=== PATIENT | female | born 1930 | race Caucasian/White ===

== ENCOUNTER → 2017-05-14 | Outpatient (CLI) | payer MEDICARE, BC, OTHER ==
[~2017-05-14] MED LIST: ALBU3IS INH; ALBU90OI INH; ALEN70 PO; ASPI325 PO; ASPI81CH PO; ATOR20 PO; AZITHROMYCIN PO; B-121000 MCG PO; BUDE6HFA INH; Bactrim Ds Tab1 EACH PO; CALCAVITD PO; CEPH500 PO; CHOL10002; DOCU100 PO; DONE10 PO; FLUSAL2505 INH; FURO20 PO; GUAI600T33 PO; HYDR1TAB94 PO; LAVAP17G PO; LISI5 PO; Lopressor 50 mg50 MG PO; METO50 PO; METO50ER PO; NICO21TP; OCUSOFT LID SCR50 M1 TP; Omeprazole20 M1; PIME1CR; PIME1CR TOP; PREDNISONE PO; PREG25 PO; SENEXON-S TABL1 EACH PO; SENN187 PO; SERT25 PO; SERT50 PO; TIOT18 INH; TRIA80TC TOP; [UNRECOGNIZED DRUG - REMARK]
[2017-05-14 10:46] LABS: Source, Urine Clean Catch
[2017-05-14 11:08] LABS: Appearance, Urine Hazy (Clear); Color, Urine Yellow (P-Yellow); Leukocyte Esterase, Urine 1+ (Neg); pH, Urine 6.5 (5.0-8.0)
[2017-05-14 11:09] LABS: Bacteria Rare /hpf; Bilirubin, Urine Neg (Neg); Blood, Urine Neg (Neg); Glucose Qualitative, Urine Neg (Normal); Ketones, Urine Neg (Neg); Nitrite, Urine Neg (Neg); Protein, Urine Neg (Neg); Red Blood Cells, Urine Not Seen /hpf (0-2); Squamous Epithelial Cells Mod /hpf (Few); Urobilinogen, Urine NORM (Normal)
== END ==
LOC: LAB SHORT 09:30
PROVIDERS: Nurse Practitioner Family
DX: N39.0 Urinary tract infection, site not specified (principal); L10.9 Pemphigus, unspecified; R19.7 Diarrhea, unspecified
CPT/HCPCS: 81001; 82043; 87086; 87493

== ENCOUNTER → 2019-03-07 | Outpatient (CLI) | payer MEDICARE, BC, OTHER ==
[2019-03-07 14:18] LABS: Bilirubin, Urine Neg (Neg); Blood, Urine 3+ (Neg); Glucose Qualitative, Urine 1+ (Neg); Ketones, Urine Neg (Neg); Leukocyte Esterase, Urine 3+ (Neg); Nitrite, Urine Neg (Neg); Protein, Urine 2+ (Neg); Urobilinogen, Urine NORM (Normal)
[2019-03-07 14:34] LABS: Appearance, Urine Hazy (Clear); Color, Urine Yellow (P-Yellow)
[2019-03-07 14:37] LABS: Bacteria Many /hpf; Squamous Epithelial Cells Few /hpf (Few); White Blood Cells, Urine TNTC /hpf (0-5)
== END | disposition home or self-care (01) ==
LOC: LAB SHORT 12:25 → LAB 12:25
PROVIDERS: Family Medicine
DX: N39.0 Urinary tract infection, site not specified (principal)
CPT/HCPCS: 81001; 87077; 87086; 87186

== ENCOUNTER 2020-04-21 17:57 | Emergency (ER) | payer MEDICARE, BC, OTHER ==
[~2020-04-21] VITALS: Ht 160 cm; Wt 79.4 kg
== END 2020-04-21 20:24 | disposition home or self-care (01) ==
LOC: ER 17:57
DX: I82.811 Embolism and thrombosis of superficial veins of right lower extremity (principal); I10 Essential (primary) hypertension; I25.10 Atherosclerotic heart disease of native coronary artery without angina pectoris; J44.9 Chronic obstructive pulmonary disease, unspecified; E11.51 Type 2 diabetes mellitus with diabetic peripheral angiopathy without gangrene; F03.90 Unspecified dementia, unspecified severity, without behavioral disturbance, psychotic disturbance, mood disturbance, and anxiety; Z79.82 Long term (current) use of aspirin; Z79.899 Other long term (current) drug therapy; Z79.51 Long term (current) use of inhaled steroids; Z91.012 Allergy to eggs; Z91.013 Allergy to seafood; Z87.891 Personal history of nicotine dependence
CPT/HCPCS: 93971; 99284-25